=== PATIENT | male | born 1990 | race Two or more races ===

== ENCOUNTER 2025-01-17 20:49 | Emergency (ER) | payer MEDICAID ==
[~2025-01-17] VITALS: Ht 172.7 cm; Wt 79.4 kg
[2025-01-17 21:00] VITALS: BP 130/69; O2SAT 100
== END 2025-01-18 01:13 | disposition left against medical advice (07) ==
LOC: ER 21:06
DX: S80.872D Other superficial bite, left lower leg, subsequent encounter (principal); S80.871D Other superficial bite, right lower leg, subsequent encounter; Z23 Encounter for immunization; Z88.7 Allergy status to serum and vaccine; Z90.49 Acquired absence of other specified parts of digestive tract; W54.0XXD Bitten by dog, subsequent encounter
CPT/HCPCS: A4606; A4663